=== PATIENT | female | born 1950 | race Caucasian/White ===

== ENCOUNTER 2022-07-09 00:20 | Emergency (ER) | payer OTHER ==
[2022-07-09 01:22] LABS: HEMOGLOBIN 13.1 gm/dl (12.3-15.3); RED BLOOD COUNT 4.42 M/UL (4.00-5.10); WHITE BLOOD COUNT 7.9 K/UL (4.5-11.0)
[2022-07-09 02:01] LABS: BUN/CREATININE RATIO 23 (0-10)
== END 2022-07-09 11:59 | disposition home or self-care (01) ==
LOC: ER1 00:20
PROVIDERS: Student in an Organized Health Care Education/Training Program
DX: F03.91 Unspecified dementia, unspecified severity, with behavioral disturbance (principal); E11.9 Type 2 diabetes mellitus without complications; Z88.6 Allergy status to analgesic agent; Z20.822 Contact with and (suspected) exposure to COVID-19
CPT/HCPCS: 51701; 70450; 71045; 80053; 81001; 82550; 82553; 84484; 85025; 99285; U0002